=== PATIENT | male | born 1970 | race African-American/Black ===

== ENCOUNTER 2023-12-11 19:03 | Emergency (ER) | payer BC | END 2023-12-11 20:48 | disposition home or self-care (01) | LOC: MW.ED 19:03 | DX: M17.12 Unilateral primary osteoarthritis, left knee (principal); I10 Essential (primary) hypertension; Z91.018 Allergy to other foods; Z79.899 Other long term (current) drug therapy | CPT/HCPCS: 73562-LT; 99283 ==

== ENCOUNTER 2024-01-22 11:54 | Day surgery (SDC) | payer BC ==
[~2024-01-22 11:54] MED LIST: Albuterol 0.083% 2.5 MG/3 ML Neb Soln NEB PRN; HYDROmorphone 1 MG/ML Syringe IVPUSH PRN; Metoclopramide 10 MG/2 ML SDV IVPUSH PRN; Morphine 2 MG/ML SYRINGE IVPUSH PRN; Naloxone 0.4 MG/ML SDV IVPUSH PRN; Ondansetron 4 MG/2 ML SDV IVPUSH PRN; ceFAZolin 2 GM in Sodium Chloride 0.9% 50 ML IV ONE; droPERidol 5 MG/2 ML SDV IVPUSH PRN
[2024-01-22] MEDS: Lactated Ringers 1,000 ML IV SCH (12:37)
[2024-01-22] MEDS ORDERED: propofoL 0 ML ONE (13:24)
[2024-01-22] MEDS ORDERED: ceFAZolin 2 GM Vial ONE (13:45)
[2024-01-22] MEDS ORDERED: propofoL 50 ML ONE (13:47)
[2024-01-22] MEDS ORDERED: fentaNYL 250 MCG/5 ML SDV ONE (13:47)
[2024-01-22] MEDS ORDERED: Ondansetron 4 MG/2 ML SDV ONE (13:50)
[2024-01-22] MEDS ORDERED: Dexamethasone 4 MG/ML 5 ML MDV ONE (13:50)
[2024-01-22] MEDS ORDERED: Ketorolac 30 MG/ML SDV ONE (13:51)
[2024-01-22] MEDS ORDERED: ePHEDrine 50 MG/ML SDV ONE (14:29)
[2024-01-22] MEDS: fentaNYL 50 MCG/ML SDV IVPUSH PRN (15:44)
== END 2024-01-22 16:20 | disposition home or self-care (01) ==
LOC: MW.SDS 11:54
PROVIDERS: ATTEND Orthopaedic Surgery
DX: S83.241A Other tear of medial meniscus, current injury, right knee, initial encounter (principal); S83.30XA Tear of articular cartilage of unspecified knee, current, initial encounter; Z79.899 Other long term (current) drug therapy; X58.XXXA Exposure to other specified factors, initial encounter
CPT/HCPCS: 29881; J0131; J0690; J1100; J1885; J2405; J2704; J3010; J7120; J3490